=== PATIENT | male | born 1990 | race Caucasian/White ===

== ENCOUNTER 2018-05-08 23:59 | Emergency (ER) | payer SELFPAY ==
--- NOTE | 2018-05-09 01:03 | ER Document Report ---
ED Extremity Problem, Lower - General Mode of Arrival: Ambulatory Information source: Patient <RADHARUTHZEINAB - Last Filed: 05/09/18 04:24> <DAVIDA WATKINS - Last Filed: 05/09/18 04:33> - General Chief Complaint: Foot Pain Stated Complaint: LEFT FOOT PAIN Time Seen by Provider: 05/09/18 00:45 Notes: Patient is a 28 year old male presenting to the emergency department complaining of left foot pain onset 2 days ago. Patient states the pain started worsening 2 nights ago and describes it as a throbbing, burning pain posterior to the left ankle further stating the pain woke him up last night. Patient states he has applied bengay to the foot and has attempted to keep it straight by putting it in a boot. Patient denies any trauma, recent injury or fevers. ( AZAEL GARCIA) - Related Data Allergies/Adverse Reactions: No Known Allergies Allergy (Unverified 05/09/18 00:05) Past Medical History - General Information source: Patient - Social History Smoking Status: Never Smoker Smoking Education Provided: No Frequency of alcohol use: Occasional Drug Abuse: Marijuana Family History: Reviewed & Not Pertinent Patient has suicidal ideation: No Patient has homicidal ideation: No <RADHAAZAEL - Last Filed: 05/09/18 04:24> Review of Systems - Review of Systems Constitutional: No symptoms reported EENT: No symptoms reported Cardiovascular: No symptoms reported Respiratory: No symptoms reported Gastrointestinal: No symptoms reported Genitourinary: No symptoms reported Male Genitourinary: No symptoms reported Musculoskeletal: See HPI Skin: No symptoms reported Hematologic/Lymphatic: No symptoms reported -: Yes All other systems reviewed and negative <AZAEL GARCIA - Last Filed: 05/09/18 04:24> Physical Exam <AZAEL GARCIA - Last Filed: 05/09/18 04:24> <DAVIDA WATKINS - Last Filed: 05/09/18 04:33> - Vital signs Vitals: Temp Pulse Resp BP Pulse Ox 98.9 F 110 H 20 169/91 H 96 05/09/18 00:09 05/09/18 00:09 05/09/18 00:09 05/09/18 00:09 05/09/18 00:09 - Notes Notes: GENERAL: Alert, interacts well. No acute distress. HEAD: Normocephalic, atraumatic. EYES: Pupils equal, round, and reactive to light. Extraocular movements intact. ENT: Oral mucosa moist, tongue midline. NECK: Full range of motion. Supple. Trachea midline. LUNGS: No respiratory distress. HEART: Tachycardic. EXTREMITIES: Moves all 4 extremities spontaneously. Small increased swelling on the medial malleolus, moderate swelling to the lateral medial malleolus. A localized area of swelling anterior to the lateral malleolus which is most tender to palpation, increased with plantarflexion and decreased with dorsiflexion. Radial and dorsalis pedis pulses 2/4 bilaterally. No cyanosis. NEUROLOGICAL: Alert and oriented x3. Normal speech PSYCH: Normal affect, normal mood. SKIN: Warm, dry, normal turgor. No rashes or lesions noted. (AZAEL GARCIA) Course - Laboratory Result Diagrams: 05/09/18 01:00 <AZAEL GARCIA - Last Filed: 05/09/18 04:24> - Laboratory Result Diagrams: 05/09/18 01:00 <DAVIDA WATKINS - Last Filed: 05/09/18 04:33> - Re-evaluation Re-evalutation: 05/09/18 02:24 This is a confusing patient his presentation is not classic for anything at this time however I am concerned by his tachycardia so blood work was performed , white blood cell count is elevated at 15.8, ESR is somewhat elevated at 28 and CRP is somewhat elevated at 36.3. Patient has no vesicles, so I doubt shingles although these could develop later and I counseled him regarding this. Given that he is not tender to light touch but only to deep touch I doubt gout and there is minimal erythema. This tenderness is not over top of any muscles so I doubt necrotizing fasciitis, he has full range of motion of his ankle so I doubt septic joint. At present the only explanation I can find for his pain, swelling and minimal erythema is possible cellulitis, patient will be treated with Keflex and referred to podiatry for further investigation. Patient is asked to return should the swelling go up his leg which could be suggestive of DVT, should he develop fever or worsening pain. (DAVIDA WATKINS) - Vital Signs Vital signs: Temp Pulse Resp BP Pulse Ox 98.1 F 99 17 150/84 H 96 05/09/18 02:37 05/09/18 02:37 05/09/18 02:37 05/09/18 02:37 05/09/18 02:37 - Laboratory Laboratory results interpreted by me: 05/09/18 05/09/18 01:00 01:00 WBC 15.8 H Seg Neutrophils % 80.6 H Lymphocytes % 11.2 L Absolute Neutrophils 12.7 H ESR 28 H C-Reactive Protein 36.3 H Discharge <AZAEL GARCIA - Last Filed: 05/09/18 04:24> <DAVIDA WATKINS - Last Filed: 05/09/18 04:33> - Discharge Clinical Impression: Left ankle pain Qualifiers: Chronicity: acute Qualified Code(s): M25.572 - Pain in left ankle and joints of left foot Condition: Stable Disposition: HOME, SELF-CARE Additional Instructions: I do not know for certain what is causing your ankle pain. Your labs are suggestive of an infection so I have started you on antibiotics. It is possible that we are missing something. Your physical examination in your symptoms may develop further which may give us more clues. Should she develop any new or concerning symptoms please return to the emergency department, especially if you develop an inability to move her ankle, fevers, blistering rash around your ankle or numbness. Please follow-up with podiatry as an outpatient. Prescriptions: Cephalexin Monohydrate [Keflex 500 mg Capsule] 500 mg PO Q6H 7 Days capsule Referrals: ROXANNE DURAN DPM [ACTIVE STAFF] - Follow up as needed Scribe Attestation: 05/09/18 04:33 I personally performed the services described in the documentation, reviewed and edited the documentation which was dictated to the scribe in my presence, and it accurately records my words and actions. (DAVIDA WATKINS) Scribe Documentation - Scribe Written by Lonnie:: Lonnie Salazar, 05/09/2018 01:08 acting as scribe for :: Casandra <AZAEL GARCIA - Last Filed: 05/09/18 04:24>
[2018-05-09 01:18] LABS: ABSOLUTE EOSINOPHILS # (AUTO) 0.1 10^3/uL (0.0-0.6); ABSOLUTE LYMPHOCYTES (AUTO) 1.8 10^3/uL (0.5-4.7); ABSOLUTE MONOCYTES (AUTO) 1.2 10^3/uL (0.1-1.4); ABSOLUTE NEUT (AUTO) 12.7 10^3/uL (1.7-8.2); BASOPHILS % (AUTO) 0.3 % (0-2); EOSINOPHILS % (AUTO) 0.4 % (0-6); HEMATOCRIT 44.4 % (37.9-51.0); HEMOGLOBIN 15.3 g/dL (13.5-17.0); LYMPHOCYTES % (AUTO) 11.2 % (13-45); MEAN CORPUSCULAR HEMOGLOBIN 28.7 pg (27.0-33.4); MEAN CORPUSCULAR HGB CONC 34.3 g/dL (32.0-36.0); MEAN CORPUSCULAR VOLUME 84 fl (80-97); MONOCYTES % (AUTO) 7.5 % (3-13); PLATELET COUNT 205 10^3/uL (150-450); RED BLOOD COUNT 5.32 10^6/uL (4.35-5.55); SEGMENTED NEUTROPHILS % (AUTO) 80.6 % (42-78); TOTAL CELLS COUNTED % (AUTO) 100 %; WHITE BLOOD COUNT 15.8 10^3/uL (4.0-10.5)
[2018-05-09 01:51] LABS: ERYTHROCYTE SEDIMENTATION RATE 28 mm/hr (0-15)
[2018-05-09] MEDS ORDERED: CEPHALEXIN 500 MG CAPSULE PO ONE (02:14)
[2018-05-09] MEDS ORDERED: HYDROCODONE/ACETAMINOPHEN 5-325 MG TABLET PO ONE (02:23)
[2018-05-09 02:38] VITALS: BP 150/84
== END 2018-05-09 02:38 | disposition home or self-care (01) ==
LOC: ER 23:59
DX: M25.572 Pain in left ankle and joints of left foot (principal); R00.0 Tachycardia, unspecified; M79.672 Pain in left foot
CPT/HCPCS: 36415; 85025; 85652; 86140; 99283